=== PATIENT | female | born 1930 | race Caucasian/White ===

== ENCOUNTER 2020-12-30 06:43 | Emergency (ER) | payer MEDICARE, BC ==
[~2020-12-30] VITALS: Ht 165.1 cm; Wt 72.0 kg
--- NOTE | 2020-12-30 06:53 | PHYS DOC ---
General Adult EDM: Chief Complaint: NAUSEA/VOMITING/DIARRHEA HPI: HPI: Patient is a 89-year-old female coming in via EMS from home for diarrhea. Has had approximately 10 episodes of diarrhea in the last 14 hours. Patient states started after dinner which was fried potatoes. Took 3 doses of loperamide without improvement. Has had some dry heaves but no vomiting. Denies any recent antibiotics, sick contacts, raw or undercooked foods, or recent travel. No fevers or cough. Has a history of diverticulitis. Complaining of epigastric pain that woke her from sleep Review of Systems: Review of Systems: All other systems within normal limits except for as noted in the HPI Allergies: Allergies: Allergies Coded Allergies Type Severity Reaction Last Updated Verified No Known Drug Allergies 12/30/20 No Physical Exam: PE: Constitutional: Well developed, well nourished, no acute distress, non-toxic appearance. [] HENT: Normocephalic, atraumatic, bilateral external ears normal, nose normal. [] Eyes: PERRLA, conjunctiva normal, no discharge. [] Neck: No rigidity, supple, no stridor. [] Cardiovascular: Regular rate and rhythm, brisk cap refill [] Lungs & Thorax: Non labored symmetric respirations, no tachypnea or respiratory distress [] Abdomen: Soft, nondistended, epigastric tenderness, no guarding or rebound, negative Cano's. Skin: Warm, dry, no erythema, no rash. [] Back: Unremarkable Extremities: No deformities, range of motion grossly intact, no lower extremity edema [] Neurologic: Alert and oriented X 3, no focal deficits noted. [] Psychologic: Affect normal, judgement normal, mood normal. [] EKG: EKG: [] Radiology/Procedures: Radiology/Procedures: REASON: RUQ; ABD PAIN PROCEDURE: ABDOMEN LTD Ultrasound of the right upper quadrant of the abdomen 12/30/2020 CLINICAL HISTORY: Right upper quadrant abdominal pain. TECHNIQUE: A real-time ultrasound examination right upper quadrant abdomen was performed. Multiple images were obtained. FINDINGS: Comparison is made to a CT scan of the abdomen dated 12/30/2020. The gallbladder is well-distended. No gallstones are visualized. Small amount of pericholecystic fluid is seen surrounding the gallbladder. The common bile duct measures 2 mm in diameter which is within normal limits. The liver is normal in size and echogenicity. It measures 15.1 cm in length. The visualized portions of pancreas and right kidney are within normal limits. IMPRESSION: Small amount of pericholecystic fluid is seen which is a nonspecific finding. There is no evidence of cholelithiasis. Exam performed: CT abdomen and pelvis with contrast HISTORY: Abdominal pain. DATE OF SERVICE: 12/30/2020. COMPARISON: None available TECHNIQUE: Contiguous helical acquisitions are obtained through the abdomen and pelvis during intravenous administration of IV contrast. Sagittal and coronal reformatted images are obtained and reviewed. FINDINGS: The lung bases are clear. The visualized heart is normal. The liver, spleen and pancreas appear normal. There is small amount of pericholecystic fluid. No cholelithiasis is identified. Both adrenal glands and bilateral kidneys are normal in size. Symmetric excretion of contrast via both kidneys. There is a nonobstructing 6.6 mm calculus in the left inferior renal pole. Atheromatous aortic calcification without aneurysm. The small and large bowel loops are nondilated and unremarkable. There is diffuse wall thickening of the distal transverse and descending colon without inflammatory changes. Diffuse colonic diverticulosis without diverticulitis. Urinary bladder is anteverted with fluid in the endometrial cavity. No adnexal masses seen. Interrogation of bone windows demonstrates no bony abnormalities. Spondylotic changes involving the lumbar spine with loss of height of T12 vertebral body seen. IMPRESSION: Moderate amount of fluid in the endometrial cavity of unknown clinical significance. Cervical stenosis or distal obstructing lesion is not excluded. Further evaluation with pelvic ultrasound recommended. Diffuse wall thickening of the distal transverse and descending colon without inflammatory changes. There is a nonspecific finding and could be related to inadequate distention, however correlate clinically to evaluate possibility of colitis. Sigmoid diverticulosis without acute diverticulitis Loss of height of T12 vertebral body suggesting compression fracture of indeterminate age. Correlate with area of focal pain and if indicated MRI of the thoracolumbar spine may be obtained [] Heart Score: C/O Chest Pain: No Risk Factors: Risk Factors: DM, Current or recent (<one month) smoker, HTN, HLP, family history of CAD, obesity. Risk Scores: Score 0 - 3: 2.5% MACE over next 6 weeks - Discharge Home Score 4 - 6: 20.3% MACE over next 6 weeks - Admit for Clinical Observation Score 7 - 10: 72.7% MACE over next 6 weeks - Early Invasive Strategies Course & Med Decision Making: Course & Med Decision Making Consult to general surgery, Dr. Kline discussed gallbladder findings. He recommends talking to the hospitalist and having transferred to [facility] for further evaluation. For possible acute cholecystitis. Hospitalist, Dr Bro consulted for admission Pertinent Labs and Imaging studies reviewed. (See chart for details) [] Dragon Disclaimer: Dragon Disclaimer: This electronic medical record was generated, in whole or in part, using a voice recognition dictation system. Departure Departure: Impression: Primary Impression: Diarrhea Additional Impression: Elevated LFTs Disposition: 02 SHORT TERM HOSPITAL Condition: STABLE MONALISA TARIQ MD December 30, 2020 06:53
[2020-12-30] MEDS ORDERED: IV NORMAL SALINE 500ML 500 ML IV ONE (07:00)
[2020-12-30] MEDS ORDERED: LIDO:MAALOX 1:1 20 ML SINGLE DOSE. PO ONE (07:00)
[2020-12-30] MEDS ORDERED: ONDANSETRON PF 4 MG/2 ML VIAL. IVP ONE (07:00)
[2020-12-30 07:14] LABS: BASO # 0.1 x10^3/uL (0.0-0.2); BASO % 0 % (0-3); EOS % 0 % (0-3); HEMATOCRIT 39.3 % (36.0-47.0); HEMOGLOBIN 12.9 g/dL (12.0-15.5); LYMPH # 0.5 x10^3/uL (1.0-4.8); LYMPH % 3 % (24-48); MEAN CORPUSCULAR HEMOGLOBIN 30 pg (25-35); MEAN CORPUSCULAR HGB CONC 33 g/dL (31-37); MEAN CORPUSCULAR VOLUME 92 fL (79-100); MONO # 0.2 x10^3/uL (0.0-1.1); MONO % 1 % (0-9); NEUT # 17.8 x10^3uL (1.8-7.7); NEUT % 96 % (31-73); PLATELET COUNT 250 x10^3/uL (140-400); RED BLOOD COUNT 4.25 x10^6/uL (3.50-5.40); RED CELL DISTRIBUTION WIDTH 14.5 % (11.5-14.5); WHITE BLOOD COUNT 18.6 x10^3/uL (4.0-11.0)
[2020-12-30 07:22] LABS: CALCIUM 9.2 mg/dL (8.5-10.1); CREATININE 0.9 mg/dL (0.6-1.0); GFR 59.1; POTASSIUM 3.9 mmol/L (3.5-5.1)
[2020-12-30 07:30] LABS: ALBUMIN 3.6 g/dL (3.4-5.0); TOTAL BILIRUBIN 2.1 mg/dL (0.2-1.0); TOTAL PROTEIN 7.3 g/dL (6.4-8.2)
[2020-12-30] MEDS ORDERED: IOHEXOL 300 MG/ML 75 ML VIAL. IV ONE (08:30)
--- NOTE | 2020-12-30 09:09 | RAD ---
PQRS Compliance Statement: One or more of the following individualized dose reduction techniques were utilized for this examinat ion: 1. Automated exposure control 2. Adjustment of the mA and/or kV according to patient size 3. Use of iterative reconstruction technique Exam performed: CT abdomen and pelvis with contrast HISTORY: Abdominal pain. DATE OF SERVICE: 12/30/2020. COMPARISON: None available TECHNIQUE: Contiguous helical acquisitions are obtained through the abdomen and pelvis during intrave nous administration of IV contrast. Sagittal and coronal reformatted images are obtained and reviewed . FINDINGS: The lung bases are clear. The visualized heart is normal. The liver, spleen and pancreas appear normal. There is small amount of pericholecystic fluid. No chol elithiasis is identified. Both adrenal glands and bilateral kidneys are normal in size. Symmetric exc retion of contrast via both kidneys. There is a nonobstructing 6.6 mm calculus in the left inferior r enal pole. Atheromatous aortic calcification without aneurysm. The small and large bowel loops are no ndilated and unremarkable. There is diffuse wall thickening of the distal transverse and descending c olon without inflammatory changes. Diffuse colonic diverticulosis without diverticulitis. Urinary tiana dder is anteverted with fluid in the endometrial cavity. No adnexal masses seen. Interrogation of bon e windows demonstrates no bony abnormalities. Spondylotic changes involving the lumbar spine with los s of height of T12 vertebral body seen. IMPRESSION: Moderate amount of fluid in the endometrial cavity of unknown clinical significance. Cervical stenosi s or distal obstructing lesion is not excluded. Further evaluation with pelvic ultrasound recommended . Diffuse wall thickening of the distal transverse and descending colon without inflammatory changes. T here is a nonspecific finding and could be related to inadequate distention, however correlate clinic ally to evaluate possibility of colitis. Sigmoid diverticulosis without acute diverticulitis Loss of height of T12 vertebral body suggesting compression fracture of indeterminate age. Correlate with area of focal pain and if indicated MRI of the thoracolumbar spine may be obtained Electronically signed by: Haylie Tomas MD (12/30/2020 9:07 AM) [facility]
[2020-12-30 09:25] LABS: % BANDS 19 % (0-9); % LYMPHS 2 % (24-48); % MONOS 2 % (0-10); % SEGS 77 % (35-66)
[2020-12-30 09:26] LABS: PLT ESTIMATE ADEQUATE (ADEQUATE)
[2020-12-30] MEDS ORDERED: IV RINGERS SOLUTION,LACTATED 1,000 ML IV ONE (10:15)
--- NOTE | 2020-12-30 12:15 | RAD ---
Ultrasound of the right upper quadrant of the abdomen 12/30/2020 CLINICAL HISTORY: Right upper quadrant abdominal pain. TECHNIQUE: A real-time ultrasound examination right upper quadrant abdomen was performed. Multiple im ages were obtained. FINDINGS: Comparison is made to a CT scan of the abdomen dated 12/30/2020. The gallbladder is well-distended. No gallstones are visualized. Small amount of pericholecystic flui d is seen surrounding the gallbladder. The common bile duct measures 2 mm in diameter which is within normal limits. The liver is normal in size and echogenicity. It measures 15.1 cm in length. The visu alized portions of pancreas and right kidney are within normal limits. IMPRESSION: Small amount of pericholecystic fluid is seen which is a nonspecific finding. There is no evidence of cholelithiasis. Electronically signed by: Ralf Benoit MD (12/30/2020 12:13 PM) [id number]
[2020-12-30] MEDS ORDERED: PIPERACILLIN/TAZOBACTAM 3.375 GM in IV NORMAL SALINE 50ML 50 ML IV ONE (12:45)
[2020-12-30] MEDS ORDERED: PIPERACILLIN/TAZOBACTAM 3.375 GM VIAL IV ONE (13:06)
[2020-12-30] MEDS ORDERED: IV NORMAL SALINE 50ML 50 ML ONE (13:06)
[2020-12-30 13:50] VITALS: BP 117/50
[2020-12-30 15:57] LABS: BACTERIA,URINE 0 /HPF (0-FEW); BILIRUBIN,URINE MOD (NEG); CLARITY,URINE CLEAR; COLOR,URINE AMBER; GLUCOSE,URINE NEG (NEG); NITRITE,URINE NEG (NEG); UROBILINOGEN,URINE >=8.0 mg/dL (0.2 mg/dL); WBC,URINE OCC /HPF (0-4)
[2020-12-30 15:58] LABS: SQUAMOUS EPITHELIAL CELL,UR MOD /LPF
== END 2020-12-30 15:29 | disposition short-term general hospital (02) ==
LOC: ER 06:43
DX: R19.7 Diarrhea, unspecified (principal); R79.89 Other specified abnormal findings of blood chemistry
CPT/HCPCS: 36415; 74177; 76705; 80053; 81001; 83690; 84484; 85007; 85025; 86705; 86709; 86803; 87340; 96361; 96365; 96375; 99285; J2405; J2543; J7040; J7120

== ENCOUNTER 2021-07-07 16:02 | Emergency (ER) | payer MEDICARE, BC ==
[~2021-07-07] VITALS: Ht 165.1 cm; Wt 67.0 kg
--- NOTE | 2021-07-07 16:36 | PHYS DOC ---
Past History Past Medical History: Diverticulitis, GERD, High Cholesterol, Hypertension (GRETA WYATT DO) Past Medical History: A-Fib (DAVID BAKER MD) Past Surgical History: Other (GRETA WYATT DO) Alcohol Use: None (GRETA WYATT DO) General Adult EDM: Chief Complaint: MECHANICAL FALL HPI: HPI: 89-year-old female presents with right hip and right ankle pain. The patient was carrying something in her house when she tripped on a stair and fell. She was unable to get up. She now has pain in the right hip and right ankle. She denies numbness, tingling, or altered sensation. She is on a blood thinner. She denies hitting her head or being knocked unconscious. She has no other specific complaints at this time. (GRETA WYATT DO) Review of Systems: Review of Systems: Constitutional: Denies fever or chills Eyes: Denies change in visual acuity HENT: Denies nasal congestion or sore throat Respiratory: Denies cough or shortness of breath Cardiovascular: Denies chest pain or edema GI: Denies abdominal pain, nausea, vomiting, bloody stools or diarrhea : Denies dysuria Musculoskeletal: Denies back pain or joint pain Integument: Denies rash Neurologic: Denies headache, focal weakness or sensory changes Endocrine: Denies polyuria or polydipsia Lymphatic: Denies swollen glands Psychiatric: Denies depression or anxiety (GRETA WYATT DO) Allergies: Allergies: Allergies Coded Allergies Type Severity Reaction Last Updated Verified No Known Drug Allergies 12/30/20 No (GRETA WYATT DO) Physical Exam: PE: Constitutional: Well developed, well nourished, no acute distress, non-toxic appearance. [] HENT: Normocephalic, atraumatic, bilateral external ears normal, oropharynx moist, no oral exudates, nose normal. [] Eyes: PERRLA, EOMI, conjunctiva normal, no discharge. [] Neck: Normal range of motion, no tenderness, supple, no stridor. [] Cardiovascular:Heart rate regular rhythm, no murmur [] Lungs & Thorax: Bilateral breath sounds clear to auscultation [] Abdomen: Bowel sounds normal, soft, no tenderness, no masses, no pulsatile masses. [] Skin: Warm, dry, no erythema, no rash. [] Back: No tenderness, no CVA tenderness. [] Extremities: No tenderness, no cyanosis, no clubbing, ROM intact, no edema. [] Neurologic: Alert and oriented X 3, normal motor function, normal sensory function, no focal deficits noted. [] Psychologic: Affect normal, judgement normal, mood normal. [] (GRETA WYATT DO) Current Patient Data: Vital Signs: Vital Signs Date Time Temp Pulse Resp B/P (MAP) Pulse Ox O2 Delivery O2 Flow Rate FiO2 07/07/21 16:12 98.6 59 20 160/96 (117) 96 Room Air (GRETA WYATT DO) EKG: EKG: Sinus rhythm, rate 61, normal axis, no ST elevation or depression. [] (GRETA WYATT DO) Radiology/Procedures: Radiology/Procedures: [] Impressions: Study: XR BILATERAL HIP (WITH OR WITHOUT PELVIS) 2 VIEWS_RIGHT Indication: Fall. Comparison: CT abdomen/pelvis 12/30/2020 Findings: Subacute, mildly displaced and impacted subcapital femoral neck fracture on the right. Taking into consideration osteopenia and bowel gas no acute fracture seen elsewhere throughout the pelvis or at the left hip. Incompletely evaluated sacrum and degenerative changes at the lower lumbar spine. Maintained joint space height at the hips. Degenerative sclerosis and cystic change at the pubic symphysis. Impression: Acute subcapital femoral neck fracture on the right with mild displacement and impaction. Osteopenia. Electronically signed by: MINDY PETERSON MD (07/07/2021 5:13 PM) [facility] DICTATED AND SIGNED BY: MINDY PETERSON MD DATE: 07/07/21 1710 CC: GRETA WYATT DO; BRADLEY COX MD ~MTH0 0 Study: XR EXAM OF ANKLE_RIGHT 2 VIEWS Indication: Fall. Comparison: None. Findings: Partially degraded AP view by patient positioning. No displaced fracture identified on the two obtained views. No gross malalignment at the ankle. Degenerative changes are mild. Small plantar calcaneal spur. Vascular calcifications. Osteopenia. Impression: No radiographic evidence for an acute fracture at the ankle or partially assessed foot. Electronically signed by: MINDY PETERSON MD (07/07/2021 5:14 PM) [facility] DICTATED AND SIGNED BY: MINDY PETERSON MD DATE: 07/07/21 171 CC: GRETA WYATT DO; BRADLEY COX MD ~MTH0 0 (GRETA WYATT DO) Heart Score: C/O Chest Pain: N/A Risk Factors: Risk Factors: DM, Current or recent (<one month) smoker, HTN, HLP, family history of CAD, obesity. Risk Scores: Score 0 - 3: 2.5% MACE over next 6 weeks - Discharge Home Score 4 - 6: 20.3% MACE over next 6 weeks - Admit for Clinical Observation Score 7 - 10: 72.7% MACE over next 6 weeks - Early Invasive Strategies (GRETA WYATT DO) Course & Med Decision Making: Course & Med Decision Making Pertinent Labs and Imaging studies reviewed. (See chart for details) The patient's labs are unremarkable. Her hip x-ray does show a subcapital femoral neck fracture. I will contact orthopedics and the hospitalist. Patient's family would prefer that she go to the [facility] system. We we will try the transfer center. Her EKG is negative for acute findings. I am signing the patient out to Dr. Baker at 1800. [] (GRETA WYATT DO) Course & Med Decision Making Pt. accepted by Dr. Bassett at [facility] on [address]. [address]. Impression: 1. Trip and Fall 2. Rt. acute subcapital femoral neck fracture wiuth displacement and impaction 3. Hx. of Afib. (DAVID BAKER MD) Dragon Disclaimer: Dragon Disclaimer: This electronic medical record was generated, in whole or in part, using a voice recognition dictation system. (GRETA WYATT DO) Departure Departure: Impression: Primary Impression: Femoral neck fracture Qualified Codes: S72.001A - Fracture of unspecified part of neck of right femur, initial encounter for closed fracture Disposition: 02 SHORT TERM HOSPITAL Condition: STABLE Referrals: BRADLEY COX MD (PCP) [employer] Disclaimer This chart was dictated in whole or in part using Voice Recognition software in a busy, high-work load, and often noisy Emergency Department environment. It may contain unintended and wholly unrecognized errors or omissions. (DAVID BAKER MD) GRETA WYATT DO Jul 07, 2021 16:35 DAVID BAKER MD Jul 07, 2021 18:18
[2021-07-07] MEDS: ONDANSETRON PF 4 MG/2 ML VIAL. IVP ONE ×2 (16:45→18:23)
[2021-07-07 17:01] LABS: BASO % 0 % (0-3); EOS # 0.1 x10^3/uL (0.0-0.7); EOS % 1 % (0-3); HEMATOCRIT 41.1 % (36.0-47.0); HEMOGLOBIN 13.6 g/dL (12.0-15.5); LYMPH # 2.1 x10^3/uL (1.0-4.8); LYMPH % 24 % (24-48); MEAN CORPUSCULAR HEMOGLOBIN 30 pg (25-35); MEAN CORPUSCULAR HGB CONC 33 g/dL (31-37); MEAN CORPUSCULAR VOLUME 91 fL (79-100); MONO # 0.6 x10^3/uL (0.0-1.1); MONO % 7 % (0-9); NEUT % 68 % (31-73); PLATELET COUNT 201 x10^3/uL (140-400); RED BLOOD COUNT 4.52 x10^6/uL (3.50-5.40); RED CELL DISTRIBUTION WIDTH 15.7 % (11.5-14.5)
[2021-07-07 17:11] LABS: CALCIUM 8.6 mg/dL (8.5-10.1); GFR 52.2; POTASSIUM 3.9 mmol/L (3.5-5.1)
--- NOTE | 2021-07-07 17:15 | RAD ---
Study: XR BILATERAL HIP (WITH OR WITHOUT PELVIS) 2 VIEWS_RIGHT Indication: Fall. Comparison: CT abdomen/pelvis 12/30/2020 Findings: Subacute, mildly displaced and impacted subcapital femoral neck fracture on the right. Taking into co nsideration osteopenia and bowel gas no acute fracture seen elsewhere throughout the pelvis or at the left hip. Incompletely evaluated sacrum and degenerative changes at the lower lumbar spine. Maintain ed joint space height at the hips. Degenerative sclerosis and cystic change at the pubic symphysis. Impression: Acute subcapital femoral neck fracture on the right with mild displacement and impaction. Osteopenia. Electronically signed by: MINDY PETERSON MD (07/07/2021 5:13 PM) [facility]
--- NOTE | 2021-07-07 17:17 | RAD ---
Study: XR EXAM OF ANKLE_RIGHT 2 VIEWS Indication: Fall. Comparison: None. Findings: Partially degraded AP view by patient positioning. No displaced fracture identified on the two obtained views. No gross malalignment at the ankle. Degen erative changes are mild. Small plantar calcaneal spur. Vascular calcifications. Osteopenia. Impression: No radiographic evidence for an acute fracture at the ankle or partially assessed foot. Electronically signed by: MINDY PETERSON MD (07/07/2021 5:14 PM) [facility]
[2021-07-07 17:19] LABS: ALBUMIN 3.4 g/dL (3.4-5.0); ALBUMIN/GLOBULIN RATIO 0.9 (1.0-1.7); TOTAL BILIRUBIN 0.7 mg/dL (0.2-1.0); TOTAL PROTEIN 7.4 g/dL (6.4-8.2)
--- NOTE | 2021-07-07 17:46 | EKG ---
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
[2021-07-07] MEDS ORDERED: MORPHINE SULFATE 4 MG/ML DISP.SYRIN. ONE (18:22)
[2021-07-07] MEDS: MORPHINE SULFATE 4 MG/ML DISP.SYRIN. IV ONE (18:23)
[2021-07-07 18:35] VITALS: BP 157/90
== END 2021-07-07 19:10 | disposition short-term general hospital (02) ==
LOC: ER 16:02
DX: S72.011A Unspecified intracapsular fracture of right femur, initial encounter for closed fracture (principal); K21.9 Gastro-esophageal reflux disease without esophagitis; E78.00 Pure hypercholesterolemia, unspecified; I10 Essential (primary) hypertension; I48.91 Unspecified atrial fibrillation; Z20.822 Contact with and (suspected) exposure to COVID-19; W01.0XXA Fall on same level from slipping, tripping and stumbling without subsequent striking against object, initial encounter; Y93.89 Activity, other specified; Y92.89 Other specified places as the place of occurrence of the external cause; Y99.8 Other external cause status
CPT/HCPCS: 36415; 73502; 73600; 80053; 84484; 85025; 87426; 93005; 96374; 96375; 96376; 99285; C9803; J2270; J2405; J3010; U0003

== ENCOUNTER 2021-12-17 00:47 | Inpatient (IN) | payer MEDICARE, BC ==
[~2021-12-17] VITALS: Ht 160 cm; Wt 70.2 kg
--- NOTE | 2021-12-17 01:01 | PHYS DOC ---
Past History Past Medical History: A-Fib Past Surgical History: Other Alcohol Use: None Adult General HPI HPI Patient is an 89-year-old female presents with pleuritic chest pain and shortness of breath over the last couple of days. Denies any recent travels, t raumas, fevers, rash, known ill contacts, wheeze, abdominal pain, nausea, vomiting, diarrhea. Denies any dysuria, hematuria or blood in the stool. States he is eating and drinking normally. States he is making urine and stool normally for her Review of Systems Review of Systems Review of systems otherwise unremarkable except noted in HPI Allergies Allergies Allergies Coded Allergies Type Severity Reaction Last Updated Verified No Known Drug Allergies 12/30/20 No Physical Exam Physical Exam Constitutional: Well developed, well nourished, no acute distress, non-toxic appearance. [] HENT: Normocephalic, atraumatic, bilateral external ears normal, oropharynx moist, no oral exudates, nose normal. [] Eyes: conjunctiva normal, no discharge. [] Neck: Normal range of motion, no tenderness, supple, no stridor. [] Cardiovascular:Heart rate regular rhythm, no murmur [] Lungs & Thorax: Bilateral global rhonchi with no wheeze, tachypnea and hypoxia on room air Abdomen: soft, no tenderness, no masses, no pulsatile masses. [] Skin: Warm, dry, no erythema, no rash. [] Back: No tenderness, no CVA tenderness. [] Extremities: No tenderness, no cyanosis, no clubbing, ROM intact, no edema. [] Neurologic: Alert and oriented X 3, normal motor function, normal sensory function, no focal deficits noted. [] Psychologic: Affect normal, judgement normal, mood normal. [] EKG EKG [] Radiology/Procedures Radiology/Procedures [] Heart Score C/O Chest Pain: Yes HEART Score for Chest Pain: HEART Score for Chest Pain Response (Comments) Value History Slighlty/Non-Suspicious 0 ECG Normal 0 Age > 65 2 Risk Factors 1 or 2 Risk Factors 1 Troponin < Normal Limit 0 Total 3 Risk Factors: Risk Factors: DM, Current or recent (<one month) smoker, HTN, HLP, family history of CAD, obesity. Risk Scores: Risk Factors: DM, Current or recent (<one month) smoker, HTN, HLP, family history of CAD, obesity. Course & Med Decision Making Course & Med Decision Making Patient is an 89-year-old female with chest pain and shortness of breath Vital signs notable for hypertension. Physical exam noted above. Patient placed on the monitor with IV access established. Given pain medicine. EKG with a rate of 80, QRS of 78, QTc of 451, no STEMI. Troponin not concerning. D-dimer slightly elevated. CT of the chest notable for groundglass opacity in the right middle lobe which is new from previous suggestive of infection. Also prominence of esophageal wall suggestive of esophagitis. Urine questionably suggestive of urinary tract infection. Laboratory analysis also notable for neutrophilic leukocytosis. Given breathing treatment. Started on antibiotics. Discussed findings with patient and recommended admission for continued evaluation and treatment. Patient grateful, verbalized understanding and agreed with plan of admission. [] Dragon Disclaimer Dragon Disclaimer This electronic medical record was generated, in whole or in part, using a voice recognition dictation system. Departure Departure: Impression: Primary Impression: Chest pain Additional Impressions: Shortness of breath Hypoxemia UTI (urinary tract infection) Hematuria Disposition: ADMITTED INPATIENT Admitting Physician: Ajit Mir Condition: STABLE Referrals: BRADLEY COX MD (PCP) Problem Qualifiers LUCRETIA CALLE MD December 17, 2021 01:01
[2021-12-17] MEDS ORDERED: MULT-658 PO (01:33)
[2021-12-17] MEDS ORDERED: METO25TA4 PO (01:38)
[2021-12-17] MEDS ORDERED: FURO40TA4 PO (01:38)
[2021-12-17] MEDS ORDERED: VITA400T6 PO (01:38)
[2021-12-17] MEDS ORDERED: APIX5TAB3 PO (01:38)
[2021-12-17] MEDS ORDERED: AMIO200T54 PO (01:38)
[2021-12-17] MEDS ORDERED: vitamin D (01:38)
[2021-12-17] MEDS ORDERED: ATOR20TA58 PO (01:38)
[2021-12-17] MEDS ORDERED: POTA10TA12 PO (01:38)
[2021-12-17] MEDS ORDERED: OMEG-117 PO (01:38)
[2021-12-17 01:53] LABS: BASO % 0 % (0-3); EOS # 0.1 x10^3/uL (0.0-0.7); EOS % 1 % (0-3); HEMATOCRIT 36.2 % (36.0-47.0); LYMPH # 1.2 x10^3/uL (1.0-4.8); LYMPH % 10 % (24-48); MEAN CORPUSCULAR HEMOGLOBIN 30 pg (25-35); MEAN CORPUSCULAR HGB CONC 33 g/dL (31-37); MEAN CORPUSCULAR VOLUME 91 fL (79-100); MONO % 8 % (0-9); NEUT # 9.8 x10^3uL (1.8-7.7); NEUT % 81 % (31-73); PLATELET COUNT 199 x10^3/uL (140-400); RED BLOOD COUNT 3.97 x10^6/uL (3.50-5.40); RED CELL DISTRIBUTION WIDTH 15.5 % (11.5-14.5); WHITE BLOOD COUNT 12.1 x10^3/uL (4.0-11.0)
[2021-12-17 02:01] LABS: CALCIUM 8.5 mg/dL (8.5-10.1); CREATININE 0.9 mg/dL (0.6-1.0); POTASSIUM 3.9 mmol/L (3.5-5.1)
[2021-12-17 02:05] LABS: ALBUMIN 3.3 g/dL (3.4-5.0); MAGNESIUM 1.8 mg/dL (1.8-2.4); TOTAL BILIRUBIN 0.5 mg/dL (0.2-1.0); TOTAL PROTEIN 6.5 g/dL (6.4-8.2)
[2021-12-17] MEDS ORDERED: IOHEXOL 350 MG/ML 100 ML VIAL. IV ONE (03:15)
[2021-12-17] MEDS ORDERED: LIDO:MAALOX 1:1 20 ML SINGLE DOSE. ONE (03:25)
[2021-12-17] MEDS ORDERED: CONTRAST GIVEN. MC PRN (03:30)
[2021-12-17] MEDS ORDERED: LIDO:MAALOX 1:1 20 ML SINGLE DOSE. PO ONE (03:30)
[2021-12-17 03:49] LABS: CLARITY,URINE CLEAR; COLOR,URINE YELLOW; GLUCOSE,URINE NEG (NEG); NITRITE,URINE NEG (NEG); RBC,URINE >40 /HPF (0-2)
[2021-12-17 03:50] LABS: BACTERIA,URINE FEW /HPF (0-FEW); SQUAMOUS EPITHELIAL CELL,UR FEW /LPF
--- NOTE | 2021-12-17 03:58 | RAD ---
INDICATION: Reason: CHEST PAIN / Spl. Instructions: / History: COMPARISON: December 2020 exam FINDINGS: Frontal view of chest obtained. Calcific atherosclerosis. There is some interstitial opacities bilaterally with coarsened lung markin gs. Mild patchy opacity including at left lung base IMPRESSION: * Mild interstitial opacities bilaterally and more focal opacity at lung base. Could be from edema o r infiltrate. Electronically signed by: Andrea Yanes MD (12/17/2021 3:56 AM) [id number]
--- NOTE | 2021-12-17 04:25 | RAD ---
INDICATION: Reason: CP, elevated dimer / Spl. Instructions: / History: COMPARISON: December 2020 TECHNIQUE: Axial CT images obtained through the chest. Intravenous contrast utilized. Angiogram 3D images proce ssed per protocol. One or more of the following individualized dose reduction techniques were utilized for this examinat ion: 1. Automated exposure control; 2. Adjustment of the mA and/or kV according to patient size; 3 . Use of iterative reconstruction technique. FINDINGS: Scattered nodular densities are seen throughout the bilateral lungs. Some these have solid appearanc e and some appear groundglass. Majority were present on prior examination. Groundglass opacity in the right middle lobe which may be new. Calcified granulomas at the partially visualized spleen. There is some prominence of the esophageal w all. Coronary artery calcific atherosclerosis. Scattered prominent lymph nodes in the mediastinum again seen. Suspected right lobe of thyroid nodule. Degenerative changes of the spine with scoliotic curvature. Nodular appearance of the breast parenchyma on the right again seen and not formally evaluated on CT. Severe calcific atherosclerosis. No central pulmonary embolus. Previously seen right upper lobe nodule is no longer visualized and may have been from rounded atelec tasis or infiltrate. Mild compression fracture of T12 vertebral body again seen. IMPRESSION: No central pulmonary embolus. Groundglass opacity in the right middle lobe which appears new. Could be infectious or inflammatory. Follow-up could be obtained to ensure that this appropriately resolves. The patient's multiple pulmon amy nodules that were seen on prior exam are again seen and can be followed at that time as well. Prominence of the esophageal wall. Correlate with symptoms to ensure that there is no pathologic caus e such as esophagitis, esophageal lesion or reflux. Nodular right breast parenchyma. Electronically signed by: Andrea Yanes MD (12/17/2021 4:22 AM) [id number]
[2021-12-17] MEDS ORDERED: MORPHINE SULFATE 2 MG/ML DISP.SYRIN. IVP PRN (04:45)
[2021-12-17] MEDS ORDERED: IV RINGERS SOLUTION,LACTATED 1,000 ML IV ONE (04:45)
[2021-12-17] MEDS ORDERED: ONDANSETRON PF 4 MG/2 ML VIAL. IVP PRN (04:45)
[2021-12-17] MEDS ORDERED: CHOL100013 PO (05:19)
--- NOTE | 2021-12-17 05:30 | NUR ---
ADMISSION: The patient, CAMILO SMITH, 89 y/o, F admitted by BISI LOPEZ MD, was given written information regarding hospital policies, unit procedures and contact persons. Pt arrived to room 111 via gurney, accompanied by [facility] and nursing sup. Pt here for c/o CP, worse with inspiration and activity. Dx: hypoxemia 2/2 pneumonia. Pt requiring 3L/NC to keep sats >92%. Pt reports pain with deep breaths, minimal relief from fentanyl received from ED. Pt resides at home alone but daughter Rosalio checks on her frequently. Discussed POC, V/U. Call light in reach. Valuables were checked and logged. Left in room with pt.
[2021-12-17 06:15] VITALS: BP 137/64
--- NOTE | 2021-12-17 07:38 | EKG ---
[address] [address] Test Date: 2021-12-17 Test Time: 00:56:07 Pat Name: CAMILO SMITH Department: Room: 111 A Gender: F Manager Interface: HARLAN : [id number] Requested By: BISI LOPEZ Order Number: [id number] Reading MD: Jon Wang MD Measurements Intervals [place] Rate: 80 P: -90 MD: 174 QRS: -18 QRSD: 78 T: 30 QT: 388 QTc: 451 Interpretive Statements SINUS RHYTHM Electronically Signed On 12-23-2021 9:29:05 CDT by Jon Wang MD
[2021-12-17] MEDS ORDERED: FUROSEMIDE 40 MG TABLET PO SCH (09:00)
[2021-12-17] MEDS: CHOLECALCIFEROL (VITAMIN D3) 1,000 UNIT TABLET PO SCH (09:31)
[2021-12-17] MEDS: METOPROLOL TART IMMED RELEASE 25 MG TABLET. PO SCH ×2 (09:31→20:40)
[2021-12-17] MEDS: POTASSIUM CHLORIDE 10 MEQ TABLET.ER. PO SCH (09:31)
[2021-12-17] MEDS: OMEGA-3 FATTY ACIDS/FISH OIL 1,000 MG CAPSULE. PO SCH (09:32)
[2021-12-17] MEDS: ACETAMINOPHEN 325 MG TABLET PO PRN ×2 (09:32→20:40)
[2021-12-17] MEDS: AMIODARONE HCL 200 MG TABLET. PO SCH (09:32)
[2021-12-17] MEDS ORDERED: methylPREDNISolone SOD SUCC PF 40 MG/ML VIAL. IV ONE (09:45)
[2021-12-17] MEDS: AZITHROMYCIN 500 MG in IV NORMAL SALINE 250ML 250 ML IV SCH (10:09)
--- NOTE | 2021-12-17 10:10 | HP ---
DATE OF SERVICE: 12/17/2021 ADMIT DATE: 12/17/2021 ATTENDING PHYSICIAN: Dr. Mir. CHIEF COMPLAINT: Shortness of breath. HISTORY OF PRESENT ILLNESS: The patient is a delightful 89-year-old female admitted through the ED with worsening symptoms of shortness of breath, congestion and some pleuritic type chest pain, with deep inspiration. Workup in the ED included a CT of the chest, which showed diffuse infiltrate in the right middle lobe. She has been vaccinated for COVID. She is alert. Oxygen saturation marginal. She was placed on 2 liters supplemental oxygen. She is admitted then with community-acquired pneumonia. PAST MEDICAL HISTORY: Significant for paroxysmal atrial fibrillation, hypertension, and hyperlipidemia. CURRENT MEDICATIONS: Include amiodarone, Eliquis, Lipitor, Lasix, metoprolol, omega 3 fish oil, potassium, and vitamin E. ALLERGIES: She has no known drug allergies. SOCIAL HISTORY: She is a nonsmoker, nondrinker. FAMILY HISTORY: Mom lived to age 92. Dad lived to age 89. They of natural causes. REVIEW OF SYSTEMS: Significant for the respiratory symptoms. She is not on any antibiotics before. Her COVID status is vaccinated. No recent exposure. She is still active. She lives alone. She drives a car. She is active and goes out to the [facility] with her daughter. All other systems reviewed and turned to be negative. In addition, she did have a hip fracture several years ago, which was treated and has not had any sequelae. She is able to ambulate without any assistance. PHYSICAL EXAMINATION: GENERAL: When I saw her, this is a pleasant elderly female who was very alert and oriented. VITAL SIGNS: Initial vital signs showed a blood pressure 137/64 mmHg, pulse is 73 and regular. She is afebrile. Oxygen saturation 97% on 3 liters nasal cannula. HEENT: Head is without trauma. Pupils are reactive. Sclerae nonicteric. The oropharynx is clear. NECK: Supple. LUNGS: Coarse rhonchi in the bases. CARDIOVASCULAR: Regular heart sounds, no gallops. ABDOMEN: Soft. EXTREMITIES: Without edema. NEUROLOGIC FINDINGS: Focally intact. Speech is fluent. PERTINENT LABORATORY STUDIES: Admission hemoglobin was 12.0 g/dL, white count 12,100. Electrolytes, BUN and creatinine all within normal range. BNP was 568. CT chest as noted. ASSESSMENT: 1. An 89-year-old female with community-acquired pneumonia, right middle lobe. 2. Pleuritic type chest pain. 3. Paroxysmal atrial fibrillation. 4. Hyperlipidemia. 5. Essential hypertension, controlled. PLAN: 1. Admit to the inpatient unit. 2. Rocephin and Zithromax have been ordered and will be continued. 3. Solu-Medrol for pleurisy. 4. Continue home meds. 5. I had a long and arti discussion. The patient does not want any heroics. She is a DNR per advanced directive. TERE/LIBERTAD DR: Sanjiv TID: [id number]
[2021-12-17 10:46] VITALS: BP 113/65
[2021-12-17 14:45] VITALS: BP 106/63
[2021-12-17 19:37] VITALS: BP 120/53
[2021-12-17] MEDS: ATORVASTATIN CALCIUM 20 MG TABLET PO SCH (20:40)
[2021-12-18 05:00] VITALS: BP 113/67
[2021-12-18 06:03] LABS: BASO % 0 % (0-3); EOS % 0 % (0-3); HEMATOCRIT 35.1 % (36.0-47.0); HEMOGLOBIN 11.4 g/dL (12.0-15.5); LYMPH # 1.1 x10^3/uL (1.0-4.8); LYMPH % 10 % (24-48); MEAN CORPUSCULAR HEMOGLOBIN 30 pg (25-35); MEAN CORPUSCULAR HGB CONC 32 g/dL (31-37); MEAN CORPUSCULAR VOLUME 92 fL (79-100); MONO # 0.8 x10^3/uL (0.0-1.1); MONO % 7 % (0-9); NEUT # 9.5 x10^3uL (1.8-7.7); NEUT % 83 % (31-73); PLATELET COUNT 173 x10^3/uL (140-400); RED BLOOD COUNT 3.83 x10^6/uL (3.50-5.40); RED CELL DISTRIBUTION WIDTH 15.3 % (11.5-14.5); WHITE BLOOD COUNT 11.4 x10^3/uL (4.0-11.0)
[2021-12-18 06:10] LABS: CALCIUM 9.1 mg/dL (8.5-10.1); CREATININE 0.9 mg/dL (0.6-1.0); POTASSIUM 3.8 mmol/L (3.5-5.1)
[2021-12-18] MEDS: POTASSIUM CHLORIDE 10 MEQ TABLET.ER. PO SCH (08:26)
[2021-12-18] MEDS: OMEGA-3 FATTY ACIDS/FISH OIL 1,000 MG CAPSULE. PO SCH (08:26)
[2021-12-18] MEDS: AMIODARONE HCL 200 MG TABLET. PO SCH (08:27)
[2021-12-18] MEDS: VITAMIN E. 400 UNIT CAPSULE. PO SCH (08:27)
[2021-12-18] MEDS: METOPROLOL TART IMMED RELEASE 25 MG TABLET. PO SCH ×2 (08:28→20:26)
[2021-12-18] MEDS: CHOLECALCIFEROL (VITAMIN D3) 1,000 UNIT TABLET PO SCH (08:29)
[2021-12-18] MEDS: MULTIVITAMIN I-VITE TABLET. PO SCH (08:29)
[2021-12-18] MEDS: AZITHROMYCIN 500 MG in IV NORMAL SALINE 250ML 250 ML IV SCH (10:52)
[2021-12-18 11:19] VITALS: BP 131/56
[2021-12-18 15:07] VITALS: BP 122/72
[2021-12-18 19:30] VITALS: BP 157/69
[2021-12-18] MEDS: ATORVASTATIN CALCIUM 20 MG TABLET PO SCH (20:26)
--- NOTE | 2021-12-19 00:06 | PN ---
DATE: 12/18/2021 SUBJECTIVE: The patient is sitting comfortably in her chair in no apparent respiratory distress. She is awake, alert. feeling generally better, continued to have some shortness of breath and chest tightness; however, she is afebrile. PHYSICAL EXAMINATION: GENERAL: When I examined her, she looked pale, no jaundice, cyanosis or thyromegaly. No jugular venous distention. No lower limb edema. VITAL SIGNS: Her heart rate was 54, blood pressure is 113/67, temperature 97.5, respiratory rate was 20 and oxygen saturation was 97% on room air. HEAD, EYES, EARS, NOSE, AND THROAT: Normocephalic, atraumatic. NECK: Supple. HEART: Showed normal first and second heart sounds. No gallop or murmur. CHEST: Shows central trachea, equal bilateral chest expansion, air entry, vesicular breath sounds with crepitation mostly on the right side posteriorly. NEUROLOGIC: She was grossly intact. Her intake and output are incompletely recorded. LABORATORY DATA: This morning showed a white cell count of 11.4, hemoglobin 11, hematocrit 35, MCV 92 and platelet count of 173 with a manual differential showed 83% polymorphs, 10% lymphocytes, 7% monocytes. Her chemistry showed a serum sodium 136, potassium 3.8, chloride 100, bicarbonate 31, anion gap of 5, BUN 21, creatinine 0.9. Estimated GFR was 59 mL per minute. Her glucose 110, calcium was 9.1. Her beta natriuretic peptide was 568. Her prothrombin time was 11.2, INR 1.1, APTT was 28 and D-dimer was 0.91. Her coronavirus by PCR was undetectable. Her urine culture showed no growth after 1 day. ASSESSMENT: 1. Acute hypoxic respiratory failure. 2. Community-acquired pneumonia. 3. Chest pain, pleuritic versus ischemic. Her EKG showed that she was in sinus rhythm at a rate of 80 beats per minute, QRS duration of 78, corrected QT interval was 451. No STEMI. Troponin was 40. PLAN: Continue with IV antibiotic. Continue in the form of Zithromax and ceftriaxone. Continue with all her other medications she is on including amiodarone and metoprolol to control the heart rate. She is also on atorvastatin and fish oil for hyperlipidemia. I will check another troponin and decide on further management accordingly. If she remains stable, she probably can be discharged home tomorrow on oral antibiotic. AMM/EM DR: Lisa TID: [id number]
[2021-12-19 05:47] VITALS: BP 148/69
[2021-12-19 05:57] LABS: HEMATOCRIT 33.4 % (36.0-47.0); RED BLOOD COUNT 3.64 x10^6/uL (3.50-5.40); RED CELL DISTRIBUTION WIDTH 15.5 % (11.5-14.5); WHITE BLOOD COUNT 8.7 x10^3/uL (4.0-11.0)
[2021-12-19 06:20] LABS: ALBUMIN 2.6 g/dL (3.4-5.0); ALBUMIN/GLOBULIN RATIO 0.9 (1.0-1.7); CALCIUM 8.4 mg/dL (8.5-10.1); CREATININE 0.9 mg/dL (0.6-1.0); POTASSIUM 3.8 mmol/L (3.5-5.1); TOTAL BILIRUBIN 0.4 mg/dL (0.2-1.0); TOTAL PROTEIN 5.6 g/dL (6.4-8.2)
[2021-12-19] MEDS: OMEGA-3 FATTY ACIDS/FISH OIL 1,000 MG CAPSULE. PO SCH (08:47)
[2021-12-19] MEDS: METOPROLOL TART IMMED RELEASE 25 MG TABLET. PO SCH (08:47)
[2021-12-19] MEDS: POTASSIUM CHLORIDE 10 MEQ TABLET.ER. PO SCH (08:47)
[2021-12-19] MEDS: VITAMIN E. 400 UNIT CAPSULE. PO SCH (08:47)
[2021-12-19] MEDS: CHOLECALCIFEROL (VITAMIN D3) 1,000 UNIT TABLET PO SCH (08:47)
[2021-12-19] MEDS: MULTIVITAMIN I-VITE TABLET. PO SCH (08:47)
[2021-12-19] MEDS: AMIODARONE HCL 200 MG TABLET. PO SCH (08:52)
[2021-12-19] MEDS: LOPERAMIDE 2 MG CAPSULE PO PRN ×2 (08:53→09:39)
[2021-12-19] MEDS ORDERED: LACTOBACILLUS RHAMNOSUS GG 1 CAPSULE. PO SCH (09:00)
[2021-12-19 10:45] VITALS: BP 148/66
[2021-12-19] MEDS ORDERED: AZIT250T PO (11:11)
[2021-12-19] MEDS ORDERED: CEFD300C PO (11:11)
--- NOTE | 2021-12-19 12:08 | NUR ---
Patient was discharged to home per request. Patient discharge information was reviewed with the patient and her daughter both verbalizing understanding. Patient left the unit via ambulation escorted by this RN. Patient was transported home in private vehicle.
--- NOTE | 2021-12-19 20:42 | DS ---
DATE OF DISCHARGE: 12/19/2021 HOSPITAL COURSE: The patient is an 89-year-old female patient who was admitted with worsening shortness of breath and chest tightness and hypoxia. She was diagnosed with community-acquired pneumonia and acute hypoxic respiratory failure, treated with IV antibiotic and did very well. On questioning her today, she is feeling felt fine. Denied any complaint. Has had no more cough or chest pain or chest tightness. She is on room air, maintaining her oxygen saturation at 94%. PHYSICAL EXAMINATION: GENERAL: When I examined her, she looked well and was clearly in no apparent respiratory distress. No pallor, jaundice, cyanosis, or thyromegaly. No jugular venous distention. No limb edema. VITAL SIGNS: Her heart rate was 60, blood pressure 148/69, temperature 97.1, respiratory rate was 16, and oxygen saturation was 94%. HEAD, EYES, EARS, NOSE AND THROAT: Normocephalic, atraumatic. NECK: Supple. HEART: Showed normal first and second heart sounds. No gallop, rub or murmur. CHEST: Clear to auscultation. She does have some crepitation mostly in the right side posteriorly. ABDOMEN: Distended, soft, nontender. NEUROLOGIC: She is grossly intact. Her intake and output are incompletely recorded. LABORATORY DATA: Showed her white cell count was 8.7, hemoglobin 11, hematocrit 33, MCV 92 and platelet count of 172,000. Her chemistry showed a serum sodium 143, potassium 3.8, chloride 105, bicarbonate 31, anion gap of 7, BUN 23, creatinine 0.9. Estimated GFR was 59 mL per minute. Her glucose was 76, calcium was 8.4. Total bilirubin, AST, ALT, alkaline phosphatase were normal. Total protein 5.6, albumin was 2.6. DISCHARGE MEDICATIONS: The patient was discharged home to continue on the following medications, azithromycin 250 mg daily for 3 more days, cefdinir 300 mg twice a day for 7 more days, amiodarone 200 mg once a day, apixaban 5 mg twice a day, atorvastatin calcium 20 mg at bedtime, cholecalciferol-vitamin D3 25 mcg once a day, furosemide 40 mg daily, metoprolol tartrate 25 mg twice a day, multivitamin with mineral 1 tablet once a day, omega 3 fatty acid 1 capsule twice a day, potassium chloride 10 mEq once a day and vitamin E ____ 400 units once a day. FINAL DISCHARGE DIAGNOSES: 1. Acute hypoxic respiratory failure, resolved. 2. Community-acquired pneumonia, improving. 3. Chest pain, pleuritic versus ischemic. Her EKG showed that she was in sinus rhythm. She has 2 sets of cardiac enzymes that were normal and ruled out acute myocardial infarction. Other medical problems include: A. Atrial fibrillation. B. Hypertension. C. Hyperlipidemia. KERRY DR: Lisa TID: [id number]
== END 2021-12-19 11:45 | disposition home or self-care (01) | DRG 177 ==
LOC: ER 00:47 → ER HOLD 04:38 → 1 SOUTH 05:08
PROVIDERS: ADMIT Hospitalist; ATTEND Hospitalist
DX: J15.6 Pneumonia due to other Gram-negative bacteria (principal); J96.01 Acute respiratory failure with hypoxia; N39.0 Urinary tract infection, site not specified; J15.9 Unspecified bacterial pneumonia; E78.5 Hyperlipidemia, unspecified; I10 Essential (primary) hypertension; I48.0 Paroxysmal atrial fibrillation; R31.9 Hematuria, unspecified; Z66 Do not resuscitate; Z20.822 Contact with and (suspected) exposure to COVID-19
CPT/HCPCS: 36415; 71045; 71275; 80048; 80053; 81001; 83735; 83880; 84484; 85025; 85027; 85379; 85610; 85730; 87086; 87426; 93005; 96374; J0456; J0696; J1956; J2270; J2920; J3010; J7050; J7120; Q9967; U0003; 97530; 99285-25